=== PATIENT | female | born 1990 | race Two or more races ===

== ENCOUNTER 2017-09-15 11:29 | Day surgery (SDC) | payer BC ==
[2017-09-12 10:31] VITALS: BMI 38.7
[2017-09-15 17:10] VITALS: TEMP 97.9
[2017-09-15 17:34] VITALS: PULSE 82
[2017-09-15 19:22] VITALS: BP 123/72
== END 2017-09-15 19:20 | disposition home or self-care (01) ==
LOC: JASU-SURG 11:29
PROVIDERS: ATTEND Surgery
PROC: 0FT44ZZ Resection of Gallbladder, Percutaneous Endoscopic Approach (ICD-10-PCS; principal; 2017-09-15)
DX: K80.10 Calculus of gallbladder with chronic cholecystitis without obstruction (principal)
CPT/HCPCS: 84703; 86850; 86900; 86901; 88304-TC; J0131

== ENCOUNTER 2020-05-25 13:09 | Emergency (ER) | payer BC, OTHER ==
[2020-05-25] MEDS ORDERED: ACETAMINOPHEN 500 MG TABLET (FP) PO ONE (14:16)
[2020-05-25 14:49] VITALS: BP 137/75; PULSE 112; TEMP 100.1; BMI 45.3
== END 2020-05-25 15:51 | disposition home or self-care (01) ==
LOC: JER 13:09
DX: J06.9 Acute upper respiratory infection, unspecified (principal)
CPT/HCPCS: 99283-25